=== PATIENT | female | born 1985 | race Caucasian/White ===

== ENCOUNTER → 2023-07-20 16:27 | Outpatient (CLI) | payer OTHER, SELFPAY ==
--- NOTE | 2023-07-20 | DI.US.S_ITS ---
PROCEDURE: US PELVIC COMPLETE INDICATIONS: HEAVY PERIODS TECHNIQUE: Real-time scanning was performed of the pelvic organs, with image documentation. Additional endovaginal scanning was necessary due to incomplete visualization of the adnexal and endometrial structures by transabdominal scanning. COMPARISON: None. FINDINGS: Uterus: Uterus is anteverted and normal in size at 7.2 x 4.1 x 4.4 cm. The myometrium is homogeneous. The endometrium measures 6.2 mm combined thickness. No uterine fibroids. Ovaries: The right ovary measures 3.4 x 2.2 x 2.3 cm, with a calculated ovarian volume of 8.6 cc. The left ovary measures 1.9 x 1.7 x 2.4 cm, with a calculated ovarian volume of 4.1 cc. The ovaries have a normal sonographic appearance. Less than 12 follicles can be seen in each ovary. No adnexal masses are seen. Other: No pathologic free abdominal or pelvic fluid. IMPRESSION: No cause for patient's symptoms is identified. The endometrium is normal in appearance. We strive to produce accurate, complete, and clear reports of imaging services. To assist us in improving patient care, this report was composed using standard report templates and voice recognition software. Therefore, it may contain abnormal punctuation, insertions and/or omissions. Occasional wrong-word or sound-alike substitutions may occur. Though we review the report and make efforts to correct it, we do recommend that the report be read carefully in proper context to recognize any text inaccuracies. Dictated by: Kvng Zapien M.D. on 07/21/2023 at 9:49 Approved by: Kvng Zapien M.D. on 07/21/2023 at 9:51
== END ==
PROVIDERS: PCP Student in an Organized Health Care Education/Training Program; Referring Provider Student in an Organized Health Care Education/Training Program; Visit Provider Student in an Organized Health Care Education/Training Program
DX: N94.6 Dysmenorrhea, unspecified (principal)
CPT/HCPCS: 76830; 76856

== ENCOUNTER → 2025-06-25 15:15 | Outpatient (CLI) | payer OTHER, SELFPAY ==
--- NOTE | 2025-06-25 15:17 | DI.US.S_ITS ---
PROCEDURE: US THYROID INDICATIONS: Thyroid Nodule F/U TECHNIQUE: Real-time scanning was performed of the thyroid gland, with image documentation. COMPARISON: [facility], US, US THYROID, 03/13/2023, 16:39. FINDINGS: Thyroid: Right lobe measures 5.5 x 2.1 x 2 point cm. Left lobe measures 3.8 x 21.1 x 1 point cm. Isthmus is 0.1 cm thick. Echotexture is homogeneous. Nodule number: 1 Location: Right mid to inferior thyroid lobe Size: 4.1 cm, previously 3.6 cm. Composition: Predominantly solid Echogenicity: Hypoechoic Shape: wider than tall. Margins: Smooth Echogenic foci: None Total points: 4 ACR TI-RADS category: 4 IMPRESSION: Right mid to inferior thyroid lobe TR 4 nodule. This nodule was previously sampled in 2019. Further clinical management should be determined with consideration of the prior pathological results. Recommend follow-up ultrasound in 1 year if it is not clinically determined to sample the dominant right thyroid lobe nodule. ACR TI-RADS definitions and recommendations: TI-RADS 1 (benign): 0 points. FNA not needed. TI-RADS 2 (not suspicious): 2 points. FNA not needed. TI-RADS 3: 3 points. * FNA if 2.5 cm or larger, follow up if 1.5 cm or larger (at 1, 3, and 5 years). TI-RADS 4: 4-6 points. * FNA if 1.5 cm or larger, follow up if 1 cm or larger (at 1, 2, 3, and 5 years). TI-RADS 5: 7 points or more. * FNA if 1 cm or larger, follow up if 0.5 cm or larger (every year for 5 years). Dictated by: Lance Paige M.D. on 06/26/2025 at 10:44 Approved by: Lance Paige M.D. on 06/26/2025 at 10:49
== END ==
LOC: US 15:16
PROVIDERS: PCP Student in an Organized Health Care Education/Training Program; Referring Provider Family Medicine; Visit Provider Family Medicine
DX: E04.1 Nontoxic single thyroid nodule (principal)
CPT/HCPCS: 76536